=== PATIENT | male | born 2000 | race Caucasian/White ===

== ENCOUNTER 2023-10-09 03:01 | Emergency (ER) | payer OTHER, SELFPAY ==
[2023-10-09 03:03] VITALS: BP 148/90
--- NOTE | 2023-10-09 03:58 | ED.GENMED ---
History of Present Illness
<DOV Snider - Last Filed: 10/09/23 04:09>
General
Chief Complaint: Oral/Mouth Problem
Source: patient and family
Exam Limitations: none
Time Seen by Provider: 10/09/23 03:57
Nursing documentation reviewed up to this point in time: agreed with
Travel History
Have you had any contact with someone who has COVID-19?: No
Do you have any symptoms of coronavirus? Fever > 100 degrees, chills, cough, shortness of breath, sore throat, loss of taste or smell, muscle aches, or headache?: No
History of Present Illness
History of Present Illness:
patient is a 23 y/o male with PMH of hiatal hernia presenting for spitting up blood. Patient states he was laying in bed this evening when he started spitting up blood. Patient states that this occurred for ten minutes then spontaneously stopped.
Patient then laid in bed again and the symptoms started up again. Patient states this has never happened before. Patient admits that he had an upper endoscopy done last Saturday due for his reflux. Patient admits he has had mild chest pain that is
dull located midline since the endoscopy. Patient denies BAKER, SOB, anemia, N/V/D/C, fever, chills, dysphagia. patient denies any alcohol or tobacco use in the last 48 hrs.
Review of Systems
<DOV Snider - Last Filed: 10/09/23 04:09>
Review of Systems
All Other Systems: Not applicable
Constitutional: Reports no symptoms
EENT: Reports no symptoms
Respiratory: Reports no symptoms
Cardiac: Reports chest pain
ABD/GI: Reports other (spitting up blood )
: Reports no symptoms
Musculoskeletal: Reports no symptoms
Skin: Reports no symptoms
Neurological: Reports no symptoms
Endocrine: Reports no symptoms
Hematologic/Lymphatic: Reports no symptoms
Psychiatric: Reports no symptoms
Phy Exam
<Maryann DOV Aguila - Last Filed: 10/09/23 04:09>
General Physical Exam
General Presentation: well appearing and no apparent distress
General Skin: warm and dry
General Habitus: normal
General Mental: alert
General Hydration: appears well hydrated
ENT Exam
ENT Exam: EOMI, pharynx normal, neck supple and normocephalic
Eye Exam
Eye Exam: PERRL, cornea clear and conjunctiva normal
Cardiovascular Exam
Cardiovascular Exam: regular rate/rhythm, no edema, no murmur and normal peripheral pulses
Pulmonary Exam
Pulmonary Exam: lungs clear, no respiratory distress, no rales, no crackles, no rhonchi, no stridor, no wheezing and no cough
Gastrointestinal Exam
Gastrointestinal Exam: normal bowel sounds, non tender, soft, no organomegaly, no pulsatile mass and non distended
Neurological Exam
Neurological Exam: alert, oriented x3, no motor deficits and speech normal
Musculoskeletal Exam
Musculoskeletal Exam: full ROM and no edema
Skin Exam
Skin Exam: normal color, warm/dry, no rash and no petechia
Psychiatric Exam
Psychiatric Exam: normal mood/affect
Course
<DOV Snider - Last Filed: 10/09/23 04:09>
Orders/Labs/Results
Orders:
Orders
10/09/23 05:39
CR Chest - 2 Views Urgent
Comment:
Reason For Exam: spitting blood
10/09/23 04:54
10/09/23 04:55
Vital Signs
Initial and Last Documented VS:
Initial Vital Signs
Temp Pulse Resp BP Pulse Ox
97.4 F 56 16 148/90 100
10/09/23 03:03 10/09/23 03:03 10/09/23 03:03 10/09/23 03:03 10/09/23 03:03
Last Documented Vital Signs
Temp Pulse Resp BP Pulse Ox
97.4 F 56 16 148/90 100
10/09/23 03:03 10/09/23 03:03 10/09/23 03:03 10/09/23 03:03 10/09/23 03:03
<Jean Pierre Lopez DO - Last Filed: 10/09/23 06:28>
Orders/Labs/Results
Orders:
Orders
10/09/23 05:39
CR Chest - 2 Views Urgent
Comment:
Reason For Exam: spitting blood
10/09/23 04:54
10/09/23 04:55
Vital Signs
Initial and Last Documented VS:
Initial Vital Signs
Temp Pulse Resp BP Pulse Ox
97.4 F 56 16 148/90 100
10/09/23 03:03 10/09/23 03:03 10/09/23 03:03 10/09/23 03:03 10/09/23 03:03
Last Documented Vital Signs
Temp Pulse Resp BP Pulse Ox
97.4 F 56 16 148/90 100
10/09/23 03:03 10/09/23 03:03 10/09/23 03:03 10/09/23 03:03 10/09/23 03:03
<DOV Snider - Last Filed: 10/09/23 04:09>
MDM/Problems Addressed
Differential Diagnosis Includes:
endoscopy complication
posterior epistaxis
alysia domínguez
MDM/Problems Addressed:
spitting up blood
<DOV Snider - Last Filed: 10/09/23 04:09>
*Critical Care Note
Total Time (30-74mins, 75-104mins- exclusive of procedures): Not Applicable
ED Attending Note
<DOV Snider - Last Filed: 10/09/23 04:09>
-
Portions of this chart may have been created with voice recognition software.� Occasional wrong word or��sound alike� substitutions may have occurred due to the inherent limitations of voice recognition software.
<Jean Pierre Lopez DO - Last Filed: 10/09/23 06:28>
ED Attending Note
Patient seen and examined by attending physician: Yes
I performed the substantive portion of visit, reviewed & personally made and approve the management plan that is documented in note by myself or JAVID.: Yes
ED Attending Note:
Pleasant 23-year-old male that presents with some bright red blood in his mouth. He did not cough. He does not feel short of breath. He did have an endoscopy at the end of last week. They did a biopsy for H. pylori. He has been on Pepcid
Complete for GERD. He denies any pain at this time. He did taste a small amount of blood in his mouth and then spit it out. Denies any current chest pain. Patient reports no fevers chills nausea or vomiting. Patient was seen in conjunction with
the PA student. I have reviewed and agree with the history and treatment plan presented. On my independent physical exam, patient is awake, alert, and oriented x3, no acute distress. Oropharynx is clear. Uvula is midline. Tonsils are cryptic
and enlarged nearly kissing. Otherwise oropharynx is clear. Jaw is mobile. Tongue is well. Lungs are clear to auscultation bilaterally without wheezes rales or rhonchi. No absent breath sounds. Heart is regular rate and rhythm. Moves all 4
extremities. Skin is warm and dry.
Patient had no coughing or shortness of breath. I feel that this is likely from the biopsy. Bleeding has stopped. Patient states that he was able to replicate the blood by lying on his side but states that now there is no blood. We will get a
chest x-ray. Patient wishes to be discharged home.
CXR normal, No PTX
Discharge Plan
Departure
Patient Disposition: Home (Routine Discharge)
Date of Disposition: 10/09/23
Time of Disposition: 06:21
Patient with high blood pressure during this ER visit?: No
Discharge Problem:
Hematemesis
Instructions: Gastrointestinal Bleeding, BLOOD PRESSURE
Prescriptions:
No Action
Pepcid Complete [id number] mg Tablet,Chewable
1 tab PO DAILY
Referrals:
[facility] [Provider Group]
NONE,* [Family Provider] -
Activity Restrictions/Additional Instructions:
Please continue to take your Pepcid AC, as directed
It was a pleasure meeting you and taking part in your care. We hope for your continued healing and wellness.
Please read discharge instructions in their entirety. However, they are for general education and may not describe your exact diagnosis at discharge. Information on your ER visit and medical conditions were discussed with you along with appropriate
follow up information...
If indicated, please take your medications as instructed and indicated on discharge paperwork.
Please schedule a follow up appointment as directed. Call to schedule an appointment
Please return to the emergency department with ANY change in, persisting, or worsening of symptoms. If any of your symptoms do not improve, or persist, or become more severe within 6-12 hours, please return to the emergency department for further
care.
Please return to the emergency department if you develop a headache, neck pain/stiffness, fever greater than 100.4F, chest pain, shortness of breath, persistent nausea, vomiting, slurred speech, difficulty walking, numbness/tingling, weakness, signs
of infection or any other symptoms that are worrisome to you.
If you have any questions or concerns please do not hesitate to call the Hospital at or E-mail me directly at [email or web address]
Interventions
Interventions:
*Risk Screen - Suicide Last Done: 10/09/23 03:03
*Neglect/Abuse Screening Last Done: 10/09/23 03:03
ED- Fall Risk Assessment Last Done: 10/09/23 04:25
Discharge Date and Time
Print Language: [place]
== END 2023-10-09 06:31 | disposition home or self-care (01) ==
LOC: EMR 03:01
PROVIDERS: EMERGENCY PHYSICIAN Student in an Organized Health Care Education/Training Program
DX: K92.0 Hematemesis (principal); R07.9 Chest pain, unspecified; J35.1 Hypertrophy of tonsils; K21.9 Gastro-esophageal reflux disease without esophagitis; K44.9 Diaphragmatic hernia without obstruction or gangrene; Z98.890 Other specified postprocedural states; Z88.0 Allergy status to penicillin
CPT/HCPCS: 99283; 71046